=== PATIENT | female | born 1950 | race Caucasian/White ===

== ENCOUNTER → 2022-07-11 14:17 | Outpatient (CLI) | payer MEDICARE, OTHER, SELFPAY ==
[2022-07-11 16:41] LABS: Cancer Antigen 125 < 5.5 U/mL (0-35)
== END ==
PROVIDERS: PCP Physician Assistant Medical; Referring Provider Obstetrics & Gynecology; Visit Provider Obstetrics & Gynecology
DX: N83.201 Unspecified ovarian cyst, right side (principal)
CPT/HCPCS: 36415; 86304

== ENCOUNTER 2023-07-08 09:06 | Day surgery (SDC) | payer MEDICARE, SELFPAY ==
--- NOTE | 2023-07-08 | PATH_ITS ---
[facility] Accession Number: [id number] No. of containers..02 Tissue . 01 Material submitted: . PART A: colon - TRANSVERSE POLYP PART B: rectum - RECTAL POLYP . 01 Diagnosis: A. TRANSVERSE COLON, POLYP: Tubular adenoma. . B. RECTUM, POLYP: Tubular adenoma. MRV 07/12/2023 1530 Local . 01 Electronically signed: . Silvia Mata MD, Pathologist NPI- [id number] . 01 Gross description: . Part A: TRANSVERSE POLYP: Received in formalin is 1 fragment(s) of bhatia, soft tissue measuring 0.4 x 0.2 x 0.2 cm submitted entirely in 1 cassette(s) Part B: RECTAL POLYP: Received in formalin is 1 fragment(s) of bhatia, soft tissue measuring 0.2 x 0.2 x 0.2 cm submitted entirely in 1 cassette(s) /SOBIA 07/10/2023 1900 Local . 01 Pathologist provided ICD-10: D12.3, D12.8 . 01 CPT . 690223, 946209 Specimen Comment: A courtesy copy of this report has been sent to [phone] Performed at: 01 [facility] [address] [place] [address] Suite [facility], [place], [place] [id number] MD Jesus Valladares MD Phone: [phone]
[2023-07-08 09:30] VITALS: BP 178/87; PULSE 76; RESP 16; TEMP 36.5; O2SAT 98
[2023-07-08] MEDS: LACTATED RINGERS 1,000 ML 42 ML IV (09:34)
--- NOTE | 2023-07-08 09:34 | PM.PREOP ---
Pre-operative Note COVID-19 COVID-19 status: Not tested Result date/Date tested (Pos, Neg/Pending): 07/08/23 Interval Note History & Physical reviewed/Exam performed by Physician: Yes Changes to H&P: No H&P completed within 30 days and has changed as indicated here:: Patient desires to forego rubber-band ligation because her hemorrhoids are minimally symptomatic ASA Class (for procedural sedation): III
[2023-07-08 10:04] VITALS: BP 123/70; PULSE 87; RESP 16; TEMP 36.2; O2SAT 97
--- NOTE | 2023-07-08 10:04 | PM.OP.COLON ---
Operative Date/Time/Diagnoses Date of procedure: 07/08/23 Time of procedure: 10:04 Pre-op diagnosis: Positive Cologuard test Post-op diagnosis: same Procedure & Clinicians Study performed: Colonoscopy Same procedure as scheduled: Yes Surgeon: Ovi Ho Procedure Notes Procedure in detail: Surgeon: Ovi Ho MD Anesthesia: Ann Teague CRNA Procedure: The patient was brought to the endoscopy suite, placed in left lateral decubitus position. The patient was connected to monitoring devices. A time-out was performed. Sedation was administered. Once the patient was adequately sedated, a digital rectal exam was performed and was normal. The scope was then inserted and advanced to the cecum where the appendiceal orifice was identified and photographed. The terminal ileum was intubated and no abnormalities were found. The scope was then slowly withdrawn over greater than 6 minutes. The mucosa was thoroughly inspected. There was a 5 mm polyp in the transverse colon removed with a cold snare. There was a 5 mm polyp in the rectum removed with a cold snare. The scope was retroflexed in the rectum. Moderate internal hemorrhoids were noted. The scope was straightened and removed. The patient was awakened and brought to recovery. Scope withdrawal time: 9 minutes Sedation time: 16 minutes EBL: 5 mL Findings: 5 mm polyp in the transverse colon, 5 mm polyp in the rectum and internal hemorrhoids Post-procedure Disposition: PACU
[2023-07-08 10:10] VITALS: BP 146/67; PULSE 87; RESP 18; O2SAT 96
[2023-07-08 10:15] VITALS: BP 110/74; PULSE 78; RESP 19; O2SAT 93
[2023-07-08 10:19] VITALS: BP 115/63; PULSE 71; RESP 19; O2SAT 94
[2023-07-08 10:23] VITALS: BP 134/75; PULSE 65; RESP 16; O2SAT 95
== END 2023-07-08 10:55 | disposition home or self-care (01) ==
PROVIDERS: PCP Physician Assistant Medical; Referring Provider Surgery; Visit Provider Surgery
PROC: 0DJD8ZZ Inspection of Lower Intestinal Tract, Via Natural or Artificial Opening Endoscopic (ICD-10-PCS; CPT 45378; principal; 2023-07-08 10:00)
DX: Z12.11 Encounter for screening for malignant neoplasm of colon (principal); R19.5 Other fecal abnormalities; K64.8 Other hemorrhoids; D12.3 Benign neoplasm of transverse colon; D12.8 Benign neoplasm of rectum
CPT/HCPCS: 45385; J2704

== ENCOUNTER 2023-08-11 07:54 | Emergency (ER) | payer MEDICARE, SELFPAY ==
[2023-08-11 08:00] VITALS: BP 208/99; PULSE 74; RESP 16; TEMP 36.4; O2SAT 100; BMI 24.3
[2023-08-11 08:04] VITALS: BP 208/99
[2023-08-11 08:05] VITALS: PULSE 70; O2SAT 99
--- NOTE | 2023-08-11 08:18 | PC.NURSE ---
Pt reports upper back muscle-skeletal pain. Pt muscles stiff on palpation. Pt reports neck pain that worsened after lifting two cases of water at [employer]. Pt states she took ibuprofen, tyelonal, heat/cold therapy, and flexeril w/ no relief. Pt also reports stool has been yellow the past couple days. Pt wonders if medicine contributed this.
[2023-08-11 08:30] VITALS: BP 166/80; PULSE 62; O2SAT 94
[2023-08-11 09:00] VITALS: BP 161/79; PULSE 58; O2SAT 94
--- NOTE | 2023-08-11 09:02 | ED.NECK ---
HPI - Neck Pain/Injury General Chief Complaint: Neck Pain/Injury Stated Complaint: pain in upper neck back neck t-7 Time Seen by Provider: 08/11/23 08:34 Mode of arrival: Family Vehicle History of Present Illness HPI Narrative: Patient is a healthy 73-year-old female who presents with ongoing upper back pain. She reports she was having some issues and then went to [facility] about 5 days ago lifted 2 cases of water and has had severe upper back and neck pain shoulder pain since then. She went to an [facility] be ED on August 06 she was given Toradol and Flexeril. She reports that the ibuprofen seems to be helping the Flexeril makes her very groggy and nauseous not feel good on it. She reports that she is just not going away. She has pain spasms all over isn't really stay in 1 place it is in her upper shoulders and goes down to her back. It has not in the middle of her spine she denies any fall or injury. No numbness or tingling in arms or legs. She denies absolutely any sort of chest pain. She feels nauseous but she thinks it is likely secondary to the Flexeril. He was given 10 mg Flexeril she feels like that is too strong. Worried because she is supposed to go on a cruise tomorrow Related Data Home Medications Medication Instructions Recorded Confirmed levothyroxine 50 mcg capsule 50 mcg PO DAILY 07/11/22 07/08/23 losartan 25 mg tablet 25 mg PO DAILY 06/18/23 07/08/23 Previous Rx's Medication Instructions Recorded methocarbamol 750 mg tablet 750 mg PO Q8H PRN muscle spasm #14 08/11/23 tabs ondansetron 4 mg disintegrating 4 mg PO Q8H PRN nausea and 08/11/23 tablet vomiting #10 tabs Allergies Allergy/AdvReac Type Severity Reaction Status Date / Time erythromycin base Allergy Unknown Diarrhea Verified 08/11/23 08:21 fluticasone [From Flonase] Allergy nose Verified 08/11/23 08:21 bleeding Sulfa (Sulfonamide AdvReac Mild denied Verified 08/11/23 08:21 Antibiotics) allergy: reports mother and sister are very allergic eggs Allergy skin issues Uncoded 08/11/23 08:21 Patient History Medical History Cathi's thyroiditis Osteoarthritis Allergies Restless leg syndrome Osteoporosis (~1999) Osteopenia (~2019) Mumps Measles Chicken pox Recurrent sinusitis Cataracts, bilateral Ovarian cyst Hemorrhoid (~2014) GERD (gastroesophageal reflux disease) (~1999) Thyroid nodule Hypothyroidism Surgical History Anesthesia History of oral surgery History of thumb surgery (~2008) History of right breast biopsy (~1979) History of left hip replacement (~2012) Family History Father Parkinson's disease Mother History of heart disease Hypertension Stroke Brother Mental health problem Brother Mental health problem Grandfather History of heart disease Grandmother Stroke Grandfather Diabetes mellitus History of heart disease Social History Smoking Status: Never smoker alcohol intake: never Smoking Status: Never smoker alcohol intake frequency: 0-2 drinks per day Substance Use Type: does not use Exam Initial Vital Signs Initial Vital Signs: Vital Signs Temperature 97.5 F L 08/11/23 08:00 Pulse Rate 74 08/11/23 08:00 Respiratory Rate 16 08/11/23 08:00 Blood Pressure 208/99 H 08/11/23 08:00 Pulse Oximetry 100 08/11/23 08:00 Oxygen Delivery Method Room Air 08/11/23 08:00 GENERAL: Well-appearing, well-nourished and in no acute distress. HEENT: Head atraumatic,EOMI, pupils reactive, face symmetric, moist mucous membranes NECK: Supple no vertebral tenderness BACK: No midline tenderness but does some paraspinal muscle tenderness more tender in the trapezius like area worse with palpation reproducible CARDIOVASCULAR: Regular rate and rhythm without murmurs, rubs or gallops. RESPIRATORY: Breath sounds equal bilaterally, no wheezes rales or rhonchi. ABDOMEN: Soft, nontender. Normoactive bowel sounds all 4 quadrants. No guarding or rebound. EXTREMITIES: Normal range of motion, no clubbing or edema. Neurovascularly intact NEUROLOGICAL: Alert and oriented x4.Normal gait and speech. Cranial nerves II through XII grossly intact. [place] strength equal bilaterally SKIN: Warm, dry, no laceration, no petechiae, no rashes or lesions. Course Orders Ordered: Discontinued Medications Ketorolac Tromethamine (Ketorolac 30 Mg/Ml Vial) 30 mg IM NOW ONE Stop: 08/11/23 08:57 Last Admin: 08/11/23 09:05 Dose: 30 mg Documented By: DONOVAN Vital Signs Vital signs: Vital Signs - 8 hr 08/11/23 08:00 08/11/23 08:04 08/11/23 08:05 Temperature 97.5 F L Pulse Rate 74 70 Respiratory Rate 16 Blood Pressure 208/99 H 208/99 H Pulse Oximetry 100 99 Oxygen Delivery Method Room Air 08/11/23 08:30 08/11/23 08:30 08/11/23 09:00 Temperature Pulse Rate 62 58 L Respiratory Rate Blood Pressure 166/80 H Pulse Oximetry 94 94 Oxygen Delivery Method 08/11/23 09:00 08/11/23 09:18 Temperature Pulse Rate Respiratory Rate 16 Blood Pressure 161/79 H Pulse Oximetry Oxygen Delivery Method MDM - Neck Pain/Injury MDM Narrative Medical decision making narrative: Patient is 73-year-old female reports she is having some ongoing back. She actually does get relief with ibuprofen it is definitely palpable and reproducible. Pain is moving around suspect musculoskeletal. She is afebrile not having any sort of chest pain. I think this is unlikely to be a dissection or infectious. She has given a dose of Toradol here in the ED. Discharge Plan Departure Patient Disposition: Home Clinical Impression: Muscle spasm of back Instructions: DI for Muscle Spasm Activity Restrictions/Additional Instructions: *You have been diagnosed with muscle spasm *What to do: Increase activity as tolerated, light activity is encouraged. Recommend heating pad like stretching like movement. No heavy lifting or strength *Continue to take medications as directed Ibuprofen 600 mg every 6 hours for flbb-cb-wleddfce pain Tylenol 1000 mg every 6 hours for xjrc-zu-opuxsdxh pain Stopped taking Flexeril Methocarbamol 750 mg every 8 hours for muscle spasm if needed Zofran 4 mg every 8 hours for nausea or vomiting *Follow up with your primary care provider in 2-3 days or call [phone] *Return to ER if you should have increasing pain weakness chest pain shortness of breath or any new, worsening or concerning symptoms Prescriptions: New methocarbamol 750 mg tablet 750 mg PO Q8H PRN (Reason: muscle spasm) Qty: 14 0RF ondansetron 4 mg tablet,disintegrating 4 mg PO Q8H PRN (Reason: nausea and vomiting) Qty: 10 0RF No Action levothyroxine 50 mcg capsule 50 mcg PO DAILY losartan 25 mg tablet 25 mg PO DAILY Referrals: Rosangela Rai PA-C [Primary Care Provider] - Stand Alone Forms: Patient Portal/API
[2023-08-11] MEDS: KETOROLAC 30 MG/ML VIAL IM (09:05)
[2023-08-11 09:18] VITALS: RESP 16
== END 2023-08-11 09:19 | disposition home or self-care (01) ==
PROVIDERS: Emergency Provider Emergency Medicine; PCP Physician Assistant Medical
DX: M62.830 Muscle spasm of back (principal)
CPT/HCPCS: 96372; 99283; J1885

== ENCOUNTER 2024-04-09 14:12 | Emergency (ER) | payer MEDICARE, SELFPAY ==
[2024-04-09] VITALS (10 sets, daily range): BP systolic 160–207; BP diastolic 80–93; PULSE 58–72; RESP 12–22; TEMP 36.8–36.9; O2SAT 94–99; BMI 24.2
--- NOTE | 2024-04-09 14:23 | EKG_ITS ---
[facility] [address], [place] [address] Test Date: 2024-04-09 Pat Name: Taylor Barba Department: [facility] Room: Gender: Female Licensed Investment Sales Assistant: : 1950 Requested By: Order Number: [id number] Reading MD: Jacky Rockwell MD Measurements Intervals [place] Rate: 70 P: 82 MD: 124 QRS: -36 QRSD: 74 T: 43 QT: 372 QTc: 401 Interpretive Statements Normal sinus rhythm Left axis deviation Pulmonary disease pattern NO PRIOR TRACING Electronically Signed On 04-09-2024 16:32:03 PST by Jacky Rockwell MD
--- NOTE | 2024-04-09 14:43 | DI.RAD.S_ITS ---
PROCEDURE: XR CHEST 1V INDICATIONS: chest pain TECHNIQUE: One view of the chest was acquired. COMPARISON: None. FINDINGS: Surgical changes and devices: None. Lungs and pleura: Lungs are clear. No pleural effusions or pneumothorax. Mediastinum: Mediastinal contours appear normal. Heart size is normal. Bones and chest wall: No suspicious bony lesions. Overlying soft tissues appear unremarkable. IMPRESSION: No acute cardiopulmonary abnormality is seen. Approved by: Brent Palumbo M.D. on 04/09/2024 at 15:18
[2024-04-09 14:50] LABS: Add Manual Diff / Slide Review NO; Basophils Absolute Auto 0 /uL (0-100); Basophils Percent Auto 0.6 % (0-2); Eosinophils Absolute Auto 100 /uL (0-450); Eosinophils Percent Auto 1.2 % (2-4); Hematocrit 40.3 % (36-46); Hemoglobin 13.6 g/dL (12.0-16.0); Lymphocytes Absolute Auto 700 /uL (1100-4500); Lymphocytes Percent Auto 16.5 % (25-40); Mean Corpuscular HGB Conc 33.6 % (30-36); Mean Corpuscular Hemoglobin 29.7 PG (26-34); Mean Corpuscular Volume 88.2 fL (80-100); Monocytes Absolute Auto 400 /uL (0-900); Monocytes Percent Auto 8.9 % (3-14); Neutrophils Absolute Auto 3300 /uL (1500-7000); Neutrophils Percent Auto 72.8 % (50-75); Platelet Count 201 X10^3/uL (150-400); Red Blood Cell Count 4.57 X10^6/uL (4.0-5.2); Red Cell Distribution Width 13.2 % (11.6-14.8); White Blood Cell Count 4.5 X10^3/uL (4.5-11.0)
[2024-04-09 14:54] LABS: Prothrombin Time 11.8 SECONDS (9.4-12.5)
[2024-04-09 14:57] LABS: PTT Partial Thromboplastin Tim 34 SECONDS (25.1-36.5)
[2024-04-09 14:59] LABS: Alanine Aminotransferase 28 IU/L (<35); Albumin 4.7 g/dL (3.5-5.0); Albumin Globulin Ratio 1.4 (1.0-2.8); Alkaline Phosphatase 69 U/L (38-126); Aspartate Aminotransferase 35 IU/L (14-36); BUN Creatinine Ratio 23.5 (6-22); Bilirubin Total 0.5 mg/dL (0.2-1.3); Blood Urea Nitrogen 24 mg/dL (7-17); Calcium 9.5 mg/dL (8.4-10.2); Carbon Dioxide 27 mmol/L (22-32); Chloride 104 mmol/L (98-107); Creatine Kinase 82 U/L (30-135); Estimated Glomerular Filt Rate 58 mL/min (>60); Globulin 3.3 g/dL (1.7-4.1); Glucose 118 mg/dL (80-110); HEMOLYSIS < 15 (0-50); Lipase 151 U/L (23-300); Potassium 3.7 mmol/L (3.4-5.1); Sodium 139 mmol/L (137-145)
[2024-04-09 15:10] LABS: NT-proBNP (BNP-Adult 18+) 290 pg/mL (<125); Troponin I < 0.012 ng/mL (0.01-0.034)
--- NOTE | 2024-04-09 17:07 | PC.NURSE ---
Acute on chronic left sided chest pain that radiates to left ribcage; tenderness to palpation. Respirations regular and unlabored--breath sounds clear on auscultation. Pt states she has this pulling sensation on left side of chest. No lesions or bruising noted on skin where pain is noted to be. Pt states she is not on a blood thinner. Pt notes she has had her bp medicine increased over the past couple of days but still has high blood pressure
[2024-04-09 18:14] LABS: Troponin I < 0.012 ng/mL (0.01-0.034)
--- NOTE | 2024-04-09 18:46 | ED.CHESTPAIN ---
HPI - Chest Pain General Chief Complaint: Chest Pain Stated Complaint: px left chest, high BP, poss arrhythmia, hx stroke Time Seen by Provider: 04/09/24 18:45 Source: patient, RN notes reviewed and old records reviewed Mode of arrival: Ambulatory Limitations: no limitations Limitations: no limitations History of Present Illness HPI narrative: 74-year-old female history of stroke in February with some mild left-sided weakness and residual left vision changes, hypertension, dyslipidemia on aspirin 81 mg. Patient states blood pressure has been elevated since she spent 8 days at [facility] and then was in rehab until [facility]. She notes her physician changed her losartan from 25 mg b.i.d. to 50 mg b.i.d. 2 days ago. Patient notes she has had some left chest discomfort kind of in her breast she has had this over the years and had mammogram, ultrasound and MRI with her last mammogram being in May. She states she was already gets a pulling sensation feels very similar she also notes sometimes feels lumpy in that breast. She states it feels a little bit tight. Has been seems to make it a little bit worse sometimes deep inhalation. She describes as more of a tightness or pulling sensation than discomfort. She has not noticed any rash or skin changes she notes sometimes her breast feels lumpy. She denies any other chest pressure did not some skipping beats occasionally. She has had no fevers or chills, no shortness of breath, no diaphoresis. No nausea or vomiting. No issues with bowel movements. No issues with urination. No swelling in extremities. Does not she has had some occasional vertigo after her stroke. She has seen Dr. Miranda for Cardiology and has been set up for a Holter or ZIO patch in his got follow up with Dr. Miranda. Patient states she was on aspirin 81 mg daily, losartan 50 mg b.i.d., Lipitor, levothyroxine finish 21 days Plavix. Patient notes she has been checking her blood pressure at home her maximum systolic has been 180s she was averaging about 140 systolic. Related Data Home Medications Medication Instructions Recorded Confirmed levothyroxine 50 mcg capsule 50 mcg PO DAILY 07/11/22 01/24/24 losartan 25 mg tablet 12.5 mg PO DAILY 01/24/24 01/24/24 Allergies Allergy/AdvReac Type Severity Reaction Status Date / Time erythromycin base Allergy Unknown Diarrhea Verified 01/24/24 10:22 fluticasone [From Flonase] Allergy nose Verified 01/24/24 10:22 bleeding Sulfa (Sulfonamide AdvReac Mild denied Verified 01/24/24 10:22 Antibiotics) allergy: reports mother and sister are very allergic eggs Allergy skin issues Uncoded 01/24/24 10:22 Review of Systems Review of Systems ROS Unobtainable: All systems reviewed & are unremarkable except as noted in HPI and below Patient History Medical History Cathi's thyroiditis Osteoarthritis Allergies Restless leg syndrome Osteoporosis (~1999) Osteopenia (~2019) Mumps Measles Chicken pox Recurrent sinusitis Cataracts, bilateral Ovarian cyst Hemorrhoid (~2014) GERD (gastroesophageal reflux disease) (~1999) Thyroid nodule Hypothyroidism Surgical History Anesthesia History of oral surgery History of thumb surgery (~2008) History of right breast biopsy (~1979) History of left hip replacement (~2012) Family History Father Parkinson's disease Mother History of heart disease Hypertension Stroke Brother Mental health problem Brother Mental health problem Grandfather History of heart disease Grandmother Stroke Grandfather Diabetes mellitus History of heart disease Social History Smoking Status: Never smoker alcohol intake: never Smoking Status: Never smoker alcohol intake frequency: 0-2 drinks per day Exam Narrative Exam Narrative: GENERAL: Alert and oriented x three, female mild distress. HEENT: Head normocephalic, atraumatic, EOMI, pupils reactive, face symmetric, moist mucous membranes NECK: Supple, full range of motion CARDIOVASCULAR: Regular rate and rhythm without murmurs, rubs or gallops. No reproducible pain. On left breast exam no masses or lumps no erythema or skin changes. RESPIRATORY: Breath sounds equal bilaterally, no wheezes rales or rhonchi. No tachypnea or accessory. ABDOMEN: Soft, nontender. Normoactive bowel sounds all 4 quadrants. No guarding or rebound, rigidity, no mass : No CVA tenderness EXTREMITIES: Normal range of motion, no clubbing or edema. Neurovascularly intact NEUROLOGICAL: Cranial nerves II through XII grossly intact. Moving all extremities SKIN: Warm, dry, no petechiae, no rashes or lesions. Initial Vital Signs Initial Vital Signs: Vital Signs Temperature 98.5 F 04/09/24 14:19 Pulse Rate 72 04/09/24 14:19 Respiratory Rate 16 04/09/24 14:19 Blood Pressure 207/93 H 04/09/24 14:19 Pulse Oximetry 97 04/09/24 14:19 Oxygen Delivery Method Room Air 04/09/24 14:19 Course Orders Ordered: ED Orders 04/09/24 14:19 EKG-12 Lead Stat 04/09/24 14:37 Complete Blood Count AUTO DIFF Stat Comprehensive Metabolic Panel Stat Lipase Stat Magnesium Stat NT-proBNP (BNP-Adult 18+) Stat PTT Partial Thromboplastin Edu Stat Prothrombin Time INR Stat Troponin & CK Cardiac Panel Stat 04/09/24 14:43 XR chest 1V Stat 04/09/24 17:36 Trop I [Troponin I] Stat Vital Signs Vital signs: Vital Signs - 8 hr 04/09/24 14:19 04/09/24 16:15 04/09/24 16:16 Temperature 98.5 F Pulse Rate 72 60 Respiratory Rate 16 Blood Pressure 207/93 H 205/90 H Pulse Oximetry 97 Oxygen Delivery Method Room Air 04/09/24 16:16 04/09/24 16:30 04/09/24 16:30 Temperature Pulse Rate 64 61 Respiratory Rate 12 22 Blood Pressure 182/84 H Pulse Oximetry 97 99 Oxygen Delivery Method 04/09/24 17:00 04/09/24 17:00 04/09/24 17:30 Temperature Pulse Rate 59 L 58 L Respiratory Rate 18 14 Blood Pressure 175/83 H Pulse Oximetry 97 97 Oxygen Delivery Method 04/09/24 17:31 04/09/24 17:31 04/09/24 18:00 Temperature Pulse Rate 61 Respiratory Rate 16 Blood Pressure 175/84 H 173/83 H Pulse Oximetry 95 Oxygen Delivery Method 04/09/24 18:00 04/09/24 18:30 04/09/24 18:30 Temperature Pulse Rate 65 65 Respiratory Rate 17 17 Blood Pressure 160/80 H Pulse Oximetry 95 97 Oxygen Delivery Method MDM - Chest Pain Lab Data 04/09/24 14:37 04/09/24 14:37 Labs: Lab Results 04/09/24 04/09/24 Range/Units 14:37 17:36 WBC 4.5 (4.5-11.0) X10^3/uL RBC 4.57 (4.0-5.2) X10^6/uL Hgb 13.6 (12.0-16.0) g/dL Hct 40.3 (36-46) % MCV 88.2 (80-100) fL MCH 29.7 (26-34) PG MCHC 33.6 (30-36) % RDW 13.2 (11.6-14.8) % Plt Count 201 (150-400) X10^3/uL Neut % (Auto) 72.8 (50-75) % Lymph % (Auto) 16.5 L (25-40) % [place] % (Auto) 8.9 (3-14) % Eos % (Auto) 1.2 L (2-4) % Baso % (Auto) 0.6 (0-2) % Neut # (Auto) 3300 (4355-0816) /uL Lymph # (Auto) 700 L (0263-2593) /uL [place] # (Auto) 400 (0-900) /uL Eos # (Auto) 100 (0-450) /uL Baso # (Auto) 0 (0-100) /uL PT 11.8 (9.4-12.5) SECONDS INR 1.0 (0.9-1.3) APTT 34 (25.1-36.5) SECONDS Sodium 139 (137-145) mmol/L Potassium 3.7 (3.4-5.1) mmol/L Chloride 104 (98-107) mmol/L Carbon Dioxide 27 (22-32) mmol/L BUN 24 H (7-17) mg/dL Creatinine 1.02 (0.52-1.04) mg/dL Estimated GFR 58 L (>60) mL/min BUN/Creatinine Ratio 23.5 H (6-22) Glucose 118 H (80-110) mg/dL Calcium 9.5 (8.4-10.2) mg/dL Magnesium 2.0 (1.6-2.3) mg/dL Total Bilirubin 0.5 (0.2-1.3) mg/dL AST 35 (14-36) IU/L ALT 28 (<35) IU/L Alkaline Phosphatase 69 (38-126) U/L Total Creatine Kinase 82 (30-135) U/L Troponin I < 0.012 < 0.012 (0.01-0.034) ng/mL NT-Pro-B Natriuret Pep 290 H (<125) pg/mL Total Protein 8.0 (6.3-8.2) g/dL Albumin 4.7 (3.5-5.0) g/dL Globulin 3.3 (1.7-4.1) g/dL Albumin/Globulin Ratio 1.4 (1.0-2.8) Lipase 151 (23-300) U/L Imaging Data Chest x-ray: Radiologist's Impression: Close Chest X-Ray (Signed) Brent Palumbo - 04/09/[address] [address] XRay Report Signed Patient: Taylor Barba MR#: [id number] : 1950 Acct:[id number] Age/Sex: 74 / F Date of Service: 04/09/24 Loc: ED Accession Number: [id number] Procedure: XR chest 1V Ordering Provider: Elissa Guerra D.O. PROCEDURE: XR CHEST 1V INDICATIONS: chest pain TECHNIQUE: One view of the chest was acquired. COMPARISON: None. FINDINGS: Surgical changes and devices: None. Lungs and pleura: Lungs are clear. No pleural effusions or pneumothorax. Mediastinum: Mediastinal contours appear normal. Heart size is normal. Bones and chest wall: No suspicious bony lesions. Overlying soft tissues appear unremarkable. IMPRESSION: No acute cardiopulmonary abnormality is seen. Approved by: Brent Palumbo M.D. on 04/09/2024 at 15:18 ECG Data Attestation: I personally reviewed and interpreted this ECG as follows: Prior ECG tracings: not available for review Interpretation: Sinus rhythm left axis deviation rate of 70 [place] 124 QRS is 74 QTC of [address] elevation or depression. No priors for comparison. MDM Narrative Medical decision making narrative: Labs show white count of 4.5 hemoglobin of 13.6 platelets of 201. Coags are negative. Electrolytes are appropriate BUN 24 creatinine is 1.02 glucose is 118 LFTs are negative troponins less than 0.02 with a repeat troponin of less than 0.02 with a BNP of 290. Lipase is 151. Chest x-ray shows no acute change EKG shows sinus rhythm no priors for comparison. Four female recent stroke in February aspirin completed her 21 days of Plavix just had her blood pressure medication increased in the 2 days blood pressure was 200 immediately after walking back from the bathroom it dropped down to 180 on rechecked was in 5 minutes. Patient just had her medications adjusted past 2 days she states she was averaging about 140 systolic home but would not adjust your medications at this time but have her continue to monitor and touch base with a physician. She was already seen Cardiology noted some skipped beats has a ZIO patch Holter monitor coming in the mail. She describes more pain in the breast and sort of a pulling sensation she has had this longstanding but notices a little bit different than before. She has had workup with mammogram, ultrasound and MRI patient. Discussed with the patient follow up with primary care discussed return precautions all questions answered. Discharge Plan Departure Patient Disposition: Home Clinical Impression: Atypical chest pain Instructions: DI for Atypical Chest Pain Activity Restrictions/Additional Instructions: Follow-up with your clock and watch hands dipper, all to have your monitor to evaluate for any arrhythmias. I would also recommend follow up with care physician please continue to monitor your blood pressure persistently elevated touch base with your physician they may adjust your medications more. Also think it would be appropriate to follow up for repeat mammogram although I do not feel any changes or lumps currently exam. Please return for new or worsening chest pain, changing symptoms, new shortness of breath, diaphoresis or sweatiness, nausea or vomiting, new swelling of your extremities, lightheadedness or passing out or other new or concerning changes. Prescriptions: No Action levothyroxine 50 mcg capsule 50 mcg PO DAILY losartan 25 mg tablet 12.5 mg PO DAILY Referrals: Mateo Miranda MD [Non-Staff] - Rosangela Rai PA-C [Primary Care Provider] - Stand Alone Forms: Patient Portal/API/Survey
== END 2024-04-09 19:18 | disposition home or self-care (01) ==
PROVIDERS: Emergency Medicine; Emergency Provider Emergency Medicine; PCP Physician Assistant Medical
DX: R07.89 Other chest pain (principal)
CPT/HCPCS: 36415; 71045; 80053; 82550; 83690; 83735; 83880; 84484; 85025; 85610; 85730; 93005; 93010; 99283; 99284

== ENCOUNTER → 2024-08-03 16:47 | Outpatient (CLI) | payer MEDICARE, SELFPAY ==
--- NOTE | 2024-08-03 16:50 | DI.MRI.S_ITS ---
PROCEDURE: MR HIP RT WO CON INDICATIONS: PAIN AFTER PT,PRIOR LT STRESS FX NOT SEEN ON XRAY TECHNIQUE: Noncontrast coronal T1 spin echo and STIR through the bony pelvis. Coronal and axial T2 fast spin echo with fat saturation, sagittal T1 spin echo, and oblique axial T2 fast spin echo with fat saturation through the hip. COMPARISON: [facility], CR, XR PELVIS WITH LATERAL HIP RIGHT, 07/31/2024, 14:37. FINDINGS: Image quality: Excellent. Bones and joints: Left hip arthroplasty is noted with associated metal artifact that obscures adjacent structures. No significant joint effusion or periarticular mass is seen. Bone marrow of the pelvic ring and proximal femurs show normal signal throughout. No intraosseous lesions or fractures. No avascular necrosis of the femoral head. Degenerative disc disease and facet hypertrophy are seen in the included spine. Tendons and ligaments: Gluteus medius and minimus tendinosis with partial tearing at the insertions onto the greater trochanter. The proximal iliotibial band appears intact. The iliopsoas tendon appears intact, without adjacent bursal fluid collections. The origin of the hamstring tendon demonstrates mild tendinosis. The tendons for the direct and indirect heads of the rectus femoris muscle appear intact. Labrum and cartilage: Full-thickness cartilage loss in the superior aspect of the hip with subchondral edema and marginal osteophytes on both sides of the joint. Moderate hip effusion is seen with mild synovial hypertrophy. There is diffuse labral degeneration and chronic degenerative tearing. Soft tissues: Visualized muscles demonstrate normal bulk and internal signal. Quadratus femoris muscle demonstrates no internal edema to suggest ischiofemoral impingement. The proximal sciatic neurovascular bundle appears normal adjacent to the hamstring tendons. Right ovarian septated 3.4 cm cyst. Pelvic soft tissues demonstrate no acute abnormality. IMPRESSION: 1. Full-thickness cartilage loss in the glenohumeral joint with subchondral edema and marginal osteophytes. Moderate right hip effusion with mild synovial hypertrophy. 2. 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 3. Mild proximal right hamstring tendinosis. 4. Postsurgical changes from left hip arthroplasty. 5. Degenerative changes are seen in the included spine. 6. Right ovarian 3.4 cm cyst. Recommend annual sonographic surveillance. Approved by: Brent Palumbo M.D. on 08/04/2024 at 11:44
== END ==
PROVIDERS: PCP Physician Assistant Medical; Referring Provider Physician Assistant Medical; Visit Provider Physician Assistant Medical
DX: S76.011A Strain of muscle, fascia and tendon of right hip, initial encounter (principal); M16.11 Unilateral primary osteoarthritis, right hip; M25.451 Effusion, right hip; N83.291 Other ovarian cyst, right side; Z96.642 Presence of left artificial hip joint
CPT/HCPCS: 73721